=== PATIENT | male | born 1975 | race Caucasian/White ===

== ENCOUNTER 2024-01-06 09:42 | Emergency (ER) | payer OTHER, SELFPAY ==
[2024-01-06 09:48] VITALS: BP 110/61; PULSE 56; RESP 18; TEMP 36.6; O2SAT 99
--- NOTE | 2024-01-06 10:19 | ED.EYEPROB ---
HPI - Eye Problem General Chief complaint: Eye Problems Stated complaint: swollen right eye Time Seen by Provider: 01/06/24 10:19 Source: patient, RN notes reviewed and old records reviewed Mode of arrival: ambulatory Limitations: no limitations History of Present Illness HPI Narrative: 48-year-old male to [facility] with complaint of right upper eyelid redness, swelling for 2 days. Patient states that he attempted to treat last night with warm wet compresses. Patient states that symptoms were worse upon awakening this morning. Patient denies injury, foreign body in eye, recent illness, visual changes, pain. Patient states that he has also attempted treat at home with eye drops with little relief. Patient does not endorse wearing corrective lenses. Patient sitting in exam room in no acute distress. Respirations even and nonlabored. Related Data Allergies Allergy/AdvReac Type Severity Reaction Status Date / Time No Known Allergies Allergy Unverified 10/21/18 10:55 Review of Systems Review of Systems: All systems reviewed & are unremarkable except as noted in HPI and below Constitutional: Constitutional: Reports no additional constitutional complaints Eyes: Eyes: Reports as per HPI, Denies blurry vision, Denies change in vision, Denies diplopia, Denies eye discharge, Reports irritation, Denies other visual disturbances, Denies eye pain and Reports other ( right upper eyelid redness and swelling) ENT: Reports system reviewed and no additional complaints, except as documented Cardiovascular: Cardiovascular: Reports no additional cardiovascular complaints, Denies chest pain and Denies dyspnea Respiratory: Respiratory: Reports no additional respiratory complaints, Denies cough and Denies dyspnea Musculoskeletal: Musculoskeletal: Reports no additional musculoskeletal complaints Neurologic: Reports system reviewed and no additional complaints, except as documented Psychiatric: Psychiatric: Reports no additional psychiatric complaints PMFSH Comments At the time of my signature, I reviewed and agree with the nursing past medical, surgical, social, and family history. There is no relevant family history pertinent to the patient complaint. Exam Const: General: cooperative, healthy appearing, comfortable, no acute distress, alert and well nourished Nutritional Appearance: well nourished Orientation/consciousness: patient oriented x3 Limitations: no limitations HENMT: Head: normal to inspection Ears: external ears normal Face/Nose/Sinus: Normal external nose present, Normal nares present, normal facial exam, No erythema and No edema Face and sinus: normal facial exam, no erythema and no edema Mouth: Yes Normal oral and palatal mucosa present Eyes: Visual Gutiérrez: normal visual gutiérrez by confrontation Alignment and Position: alignment normal and position normal Periorbital: periorbital findings normal Eyelids: eyelid abnormality right upper eyelid erythema and swelling; nontender Conjunctivae: conjunctivae normal Sclera: sclerae normal Pupils: Equal, round and reactive pupils present, Pupils normal by confrontation and Pupil accommodation reflex normal Neck: Neck: normal visual inspection, full ROM and no meningeal signs Chest: Chest palpation & inspection: normal inspection of the chest Resp: Effort & Inspection: normal respiratory effort and able to speak in complete sentences Auscultation: clear to auscultation bilaterally Cardio: Jugular venous distension: no JVD Rate: regular rate Rhythm: regular rhythm Back/Spine/Pelvis: Cervical Spine: cervical ROM normal Skin: General skin exam: normal color, no rashes or lesions noted and turgor normal Neuro: General: patient oriented x3, gait normal, moves all extremities and no meningeal signs Speech: normal speech Gait exam (Neuro): Normal gait present Extrem: General: normal to inspection, full ROM and capillary refill normal Psych: Appearance: grossly normal and
[2024-01-06] MEDS: KETOROLAC (*BKC) 60 MG/2 ML VIAL IM (10:48)
[2024-01-06] MEDS: diphenhydrAMINE HCl CAP 25 MG CAPSULE 50 MG PO (10:48)
== END 2024-01-06 11:10 | disposition home or self-care (01) ==
PROVIDERS: Emergency Provider Nurse Practitioner Family
DX: H01.9 Unspecified inflammation of eyelid (principal)
CPT/HCPCS: 96372; 99213; A9270; G0463; J1885